=== PATIENT | female | born 1980 | race Caucasian/White ===

== ENCOUNTER → 2019-09-27 11:11 | Outpatient (CLI) | payer MEDICARE, MEDICAID, SELFPAY ==
[2019-09-27 10:23] VITALS: BMI 37.8
[2019-09-30 03:06] LABS: QNTFERON TB Mitogen Value > 10.00 IU/mL (.); QNTFERON TB Nil Value 0.02 IU/mL (.); QNTFERON TB1+ Ag Value 0.02 IU/mL (.); QNTFERON TB2+ Ag Value 0.02 IU/mL (.)
[2019-09-30 14:03] LABS: QNTIFERON TB Positive Criteria Negative (Negative)
== END ==
PROVIDERS: PCP Family Medicine; Referring Provider Psychiatry & Neurology Neurology; Visit Provider Psychiatry & Neurology Neurology
DX: G35 Multiple sclerosis (principal)
CPT/HCPCS: 36415; 86480

== ENCOUNTER → 2020-10-29 11:06 | Outpatient (CLI) | payer MEDICARE, MEDICAID, SELFPAY ==
[2020-07-08 10:39] VITALS: BMI 35.8
[2020-10-29 13:29] LABS: Absolute Lymphocyte Count 1.11 X10^3/uL (0.83-4.51); Absolute Neutrophil Count 4.8 X10^3/uL (2.0-7.7); Basophil# 0.04 X10^3/uL; Basophil% 0.6 % (0-1); Eosinophil# 0.07 X10^3/uL; Eosinophils% 1.1 % (0-5); Hematocrit 42.3 % (37-47); Hemoglobin 13.6 g/dL (12.0-15.0); Lymphocyte # 1.11 X10^3/ul (0.83-4.51); Lymphocyte % 16.9 % (19-41); Mean Corp Hgb Conc 32.2 g/dL (32-36); Mean Corpuscular Hgb 29.2 pg (27.0-32.0); Mean Corpuscular Volume 90.8 fL (81-99); Mean Platelet Vol. 14.2 fl (6.2-12.0); Monocyte# 0.52 X10^3/uL; Monocyte% 7.9 % (0-10); NRBC Flagged by Analyzer 0 % (0-5); Neutrophil # 4.75 X10^3/uL (2.7-7.7); Neutrophil % 72.6 % (47-70); Platelet Count 130 K/mm3 (150-450); RBC Distribution Width CV 12.9 % (11.6-14.6); RBC Distribution Width SD 42.6 fl (35.1-43.9); Red Blood Count 4.66 M/mm3 (4.2-5.4); White Blood Count 6.6 K/mm3 (4.4-11.0)
[2020-10-29 13:50] LABS: AST(SGOT) 14 U/L (15-37); Alanine Aminotransfer ALT/SGPT 29 U/L (13-56); Alkaline Phosphatase 65 U/L (45-117); Bilirubin, Direct 0.15 mg/dL (0.00-0.30); Globulin 3.1 g/dL (2.2-4.2); Protein, Total 7.1 g/dL (6.4-8.2)
== END ==
PROVIDERS: PCP Family Medicine; Visit Provider Nurse Practitioner Family
DX: G35 Multiple sclerosis (principal)
CPT/HCPCS: 36415; 80076; 85025

== ENCOUNTER → 2021-03-17 14:14 | Outpatient (CLI) | payer MEDICARE, MEDICAID, SELFPAY ==
[2021-03-17 15:13] LABS: Absolute Neutrophil Count 3.7 X10^3/uL (2.0-7.7); Basophil# 0.05 X10^3/uL; Basophil% 0.8 % (0-1); Eosinophil# 0.14 X10^3/uL; Eosinophils% 2.3 % (0-5); Hematocrit 39.6 % (37-47); Lymphocyte % 23.4 % (19-41); Mean Corp Hgb Conc 32.8 g/dL (32-36); Mean Corpuscular Hgb 29.1 pg (27.0-32.0); Mean Corpuscular Volume 88.6 fL (81-99); Mean Platelet Vol. 14.9 fl (6.2-12.0); Monocyte# 0.61 X10^3/uL; Monocyte% 10.2 % (0-10); NRBC Flagged by Analyzer 0 % (0-5); Neutrophil # 3.73 X10^3/uL (2.7-7.7); Neutrophil % 62.5 % (47-70); Platelet Count 105 K/mm3 (150-450); RBC Distribution Width CV 13.5 % (11.6-14.6); RBC Distribution Width SD 43.9 fl (35.1-43.9); Red Blood Count 4.47 M/mm3 (4.2-5.4)
[2021-03-17 15:34] LABS: ALB/GLOB Ratio 1.2 RATIO (0.9-2.4); AST(SGOT) 10 U/L (15-37); Alanine Aminotransfer ALT/SGPT 22 U/L (13-56); Albumin, Serum 3.7 g/dL (3.2-5.0); Alkaline Phosphatase 71 U/L (45-117); Anion Gap 3 (5-15); BUN 17 mg/dL (7-18); BUN/Creat Ratio 21.9 RATIO (10-20); Calcium,Total 8.7 mg/dL (8.5-10.1); Chloride 108 mmol/L (98-107); Creatinine, Serum 0.78 mg/dL (0.55-1.02); EST Glomerular Filtration Rate 86 mL/min (>60); Est Glom Filt Rate - Afr Amer 105 mL/min (>60); Globulin 3.1 g/dL (2.2-4.2); Glucose 99 mg/dL (74-106); Potassium 3.7 mmol/L (3.5-5.1); Protein, Total 6.8 g/dL (6.4-8.2); Sodium Level 139 mmol/L (136-145)
[2021-03-17 15:43] LABS: Vitamin D,25 Hydroxy 106.5 ng/mL
[2021-03-18 14:10] LABS: Vitamin B12 > 2000 pg/mL (211-911)
== END ==
PROVIDERS: PCP Family Medicine; Referring Provider Nurse Practitioner Family; Visit Provider Nurse Practitioner Family
DX: G35 Multiple sclerosis (principal); R53.83 Other fatigue; E55.9 Vitamin D deficiency, unspecified
CPT/HCPCS: 36415; 80053; 82306; 82607; 85025

== ENCOUNTER → 2021-06-02 10:48 | Outpatient (CLI) | payer MEDICARE, MEDICAID, SELFPAY ==
[2021-06-02 12:26] LABS: Absolute Lymphocyte Count 1.68 X10^3/uL (0.83-4.51); Absolute Neutrophil Count 5.5 X10^3/uL (2.0-7.7); Basophil# 0.06 X10^3/uL; Basophil% 0.7 % (0-1); Eosinophil# 0.13 X10^3/uL; Eosinophils% 1.6 % (0-5); Hematocrit 45.3 % (37-47); Hemoglobin 14.7 g/dL (12.0-15.0); Lymphocyte # 1.68 X10^3/ul (0.83-4.51); Lymphocyte % 20.4 % (19-41); Mean Corp Hgb Conc 32.5 g/dL (32-36); Mean Corpuscular Hgb 29.1 pg (27.0-32.0); Mean Corpuscular Volume 89.5 fL (81-99); Monocyte% 9.7 % (0-10); NRBC Flagged by Analyzer 0 % (0-5); Neutrophil # 5.49 X10^3/uL (2.7-7.7); Neutrophil % 66.7 % (47-70); Platelet Count 138 K/mm3 (150-450); RBC Distribution Width CV 13.2 % (11.6-14.6); RBC Distribution Width SD 43.3 fl (35.1-43.9); Red Blood Count 5.06 M/mm3 (4.2-5.4); White Blood Count 8.2 K/mm3 (4.4-11.0)
[2021-06-02 12:45] LABS: Vitamin D,25 Hydroxy 48.3 ng/mL
== END ==
PROVIDERS: PCP Family Medicine; Referring Provider Nurse Practitioner Family; Visit Provider Nurse Practitioner Family
DX: E55.9 Vitamin D deficiency, unspecified (principal); G35 Multiple sclerosis
CPT/HCPCS: 36415; 82306; 85025

== ENCOUNTER → 2022-04-19 | Outpatient (CLI) | payer MEDICARE, MEDICAID, SELFPAY ==
[2022-04-19 15:13] LABS: Absolute Lymphocyte Count 1.45 X10^3/uL (0.83-4.51); Absolute Neutrophil Count 4.8 X10^3/uL (2.0-7.7); Basophil# 0.05 X10^3/uL; Basophil% 0.7 % (0-1); Eosinophil# 0.11 X10^3/uL; Eosinophils% 1.6 % (0-5); Hematocrit 41.3 % (37-47); Hemoglobin 13.1 g/dL (12.0-15.0); Lymphocyte # 1.45 X10^3/ul (0.83-4.51); Lymphocyte % 20.5 % (19-41); Mean Corp Hgb Conc 31.7 g/dL (32-36); Mean Corpuscular Hgb 28.7 pg (27.0-32.0); Mean Corpuscular Volume 90.4 fL (81-99); Mean Platelet Vol. 14.3 fl (6.2-12.0); Monocyte# 0.62 X10^3/uL; Monocyte% 8.7 % (0-10); NRBC Flagged by Analyzer 0 % (0-5); Neutrophil # 4.79 X10^3/uL (2.7-7.7); Neutrophil % 67.5 % (47-70); Platelet Count 125 K/mm3 (150-450); RBC Distribution Width CV 13.5 % (11.6-14.6); RBC Distribution Width SD 44.5 fl (35.1-43.9); Red Blood Count 4.57 M/mm3 (4.2-5.4); White Blood Count 7.1 K/mm3 (4.4-11.0)
[2022-04-19 15:38] LABS: Vitamin B12 366 pg/mL (211-911)
[2022-04-19 16:06] LABS: ALB/GLOB Ratio 1.1 RATIO (0.9-2.4); AST(SGOT) 13 U/L (15-37); Alanine Aminotransfer ALT/SGPT 22 U/L (13-56); Albumin, Serum 3.5 g/dL (3.2-5.0); Alkaline Phosphatase 67 U/L (45-117); Anion Gap 8 (5-15); BUN 13 mg/dL (7-18); BUN/Creat Ratio 17.5 RATIO (10-20); Calcium,Total 8.8 mg/dL (8.5-10.1); Chloride 110 mmol/L (98-107); Creatinine, Serum 0.74 mg/dL (0.55-1.02); EST Glomerular Filtration Rate 90 mL/min (>60); Est Glom Filt Rate - Afr Amer 109 mL/min (>60); Globulin 3.1 g/dL (2.2-4.2); Glucose 97 mg/dL (74-106); Potassium 3.8 mmol/L (3.5-5.1); Protein, Total 6.6 g/dL (6.4-8.2); Sodium Level 143 mmol/L (136-145); Thyroid Stim Hormone (TSH) 1.35 uIU/mL (0.358-3.74)
[2022-04-27 10:37] LABS: Vitamin B1, Thiamine 129.1 nmol/L (66.5-200.0)
== END | disposition home or self-care (01) ==
PROVIDERS: PCP Family Medicine; Referring Provider Psychiatry & Neurology Neurology; Visit Provider Psychiatry & Neurology Neurology
DX: R53.83 Other fatigue (principal); G35 Multiple sclerosis; R26.81 Unsteadiness on feet
CPT/HCPCS: 36415; 80053; 82607; 82746; 84425; 84443; 85025

== ENCOUNTER → 2023-01-03 | Outpatient (CLI) | payer MEDICARE, MEDICAID, SELFPAY ==
[2023-01-03 14:36] LABS: Absolute Lymphocyte Count 1.12 X10^3/uL (0.83-4.51); Basophil# 0.06 X10^3/uL; Basophil% 0.5 % (0-1); Eosinophil# 0.13 X10^3/uL; Eosinophils% 1.2 % (0-5); Hematocrit 42.5 % (37-47); Hemoglobin 13.6 g/dL (12.0-15.0); Lymphocyte # 1.12 X10^3/ul (0.83-4.51); Mean Corpuscular Volume 90.6 fL (81-99); Monocyte# 0.78 X10^3/uL; NRBC Flagged by Analyzer 0 % (0-5); Neutrophil # 8.98 X10^3/uL (2.7-7.7); Neutrophil % 80.5 % (47-70); POSITIVE COUNT YES; Platelet Count 99 K/mm3 (150-450); RBC Distribution Width CV 12.9 % (11.6-14.6); RBC Distribution Width SD 42.2 fl (35.1-43.9); Red Blood Count 4.69 M/mm3 (4.2-5.4); White Blood Count 11.2 K/mm3 (4.4-11.0)
[2023-01-03 14:37] LABS: Differential Indicated SCAN CRITERIA MET
[2023-01-03 15:03] LABS: ALB/GLOB Ratio 1.1 RATIO (0.9-2.4); AST(SGOT) 13 U/L (15-37); Alanine Aminotransfer ALT/SGPT 31 U/L (13-56); Albumin, Serum 3.8 g/dL (3.2-5.0); Alkaline Phosphatase 72 U/L (45-117); Anion Gap 6 (5-15); BUN 18 mg/dL (7-18); BUN/Creat Ratio 20.2 RATIO (10-20); Calcium,Total 9.3 mg/dL (8.5-10.1); Chloride 108 mmol/L (98-107); Creatinine, Serum 0.89 mg/dL (0.55-1.02); EST Glomerular Filtration Rate 73 mL/min (>60); Est Glom Filt Rate - Afr Amer 88 mL/min (>60); Globulin 3.5 g/dL (2.2-4.2); Glucose 97 mg/dL (74-106); Potassium 4.1 mmol/L (3.5-5.1); Protein, Total 7.3 g/dL (6.4-8.2); Sodium Level 139 mmol/L (136-145)
[2023-01-03 15:06] LABS: Platelet Estimate MOD DEC (ADEQ)
== END | disposition home or self-care (01) ==
LOC: MTLAB 12:33
PROVIDERS: PCP Family Medicine; Referring Provider Psychiatry & Neurology Neurology; Visit Provider Psychiatry & Neurology Neurology
DX: G35 Multiple sclerosis (principal)
CPT/HCPCS: 36415; 80053; 85025

== ENCOUNTER → 2023-02-03 | Outpatient (CLI) | payer MEDICARE, MEDICAID, SELFPAY ==
[2023-02-03 17:21] LABS: Absolute Lymphocyte Count 1.62 X10^3/uL (0.83-4.51); Absolute Neutrophil Count 4.7 X10^3/uL (2.0-7.7); Basophil# 0.06 X10^3/uL; Basophil% 0.8 % (0-1); Eosinophil# 0.09 X10^3/uL; Eosinophils% 1.3 % (0-5); Hematocrit 40.5 % (37-47); Hemoglobin 12.9 g/dL (12.0-15.0); Immature Platelet Fraction 24.1 % (1.0-7.9); Lymphocyte # 1.62 X10^3/ul (0.83-4.51); Lymphocyte % 22.8 % (19-41); Mean Corp Hgb Conc 31.9 g/dL (32-36); Mean Corpuscular Hgb 28.5 pg (27.0-32.0); Mean Corpuscular Volume 89.6 fL (81-99); Mean Platelet Vol. 14.4 fl (6.2-12.0); Monocyte# 0.58 X10^3/uL; Monocyte% 8.2 % (0-10); NRBC Flagged by Analyzer 0 % (0-5); Neutrophil # 4.68 X10^3/uL (2.7-7.7); Neutrophil % 65.9 % (47-70); POSITIVE COUNT YES; Platelet Count 91 K/mm3 (150-450); RBC Distribution Width CV 12.9 % (11.6-14.6); RBC Distribution Width SD 42.3 fl (35.1-43.9); RET-HE 31.5 pg (30-35); Red Blood Count 4.52 M/mm3 (4.2-5.4); Reticulocyte Count 2.22 % (0.5-1.5); White Blood Count 7.1 K/mm3 (4.4-11.0)
[2023-02-03 17:25] LABS: Differential Indicated SCAN CRITERIA MET
[2023-02-03 17:27] LABS: Erythrocyte Sedimentation Rate 2 mm/hr (0-30); International Normalized Ratio 1.1; Prothrombin Time (Protime)PT. 13.8 SECONDS (11.7-14.9)
[2023-02-03 17:28] LABS: Partial Thromboplast Time 28.4 Seconds (24.1-36.2)
[2023-02-03 17:57] LABS: Platelet Estimate SLT DEC (ADEQ); Platelet Morphology LARGE
[2023-02-03 17:58] LABS: Anisocytosis RARE; Red Cell Morphology N CHROM NORMAL (NORM C&C)
[2023-02-03 18:28] LABS: Vitamin B12 428 pg/mL (211-911)
[2023-02-03 18:37] LABS: ALB/GLOB Ratio 1.2 RATIO (0.9-2.4); AST(SGOT) 21 U/L (15-37); Alanine Aminotransfer ALT/SGPT 38 U/L (13-56); Albumin, Serum 3.7 g/dL (3.2-5.0); Alkaline Phosphatase 55 U/L (45-117); Anion Gap 8 (5-15); BUN 16 mg/dL (7-18); BUN/Creat Ratio 18.6 RATIO (10-20); Calcium,Total 8.8 mg/dL (8.5-10.1); Chloride 110 mmol/L (98-107); Creatinine, Serum 0.86 mg/dL (0.55-1.02); EST Glomerular Filtration Rate 76 mL/min (>60); Est Glom Filt Rate - Afr Amer 92 mL/min (>60); Ferritin 43 ng/mL (8-252); Globulin 3.1 g/dL (2.2-4.2); Glucose 101 mg/dL (74-106); Iron Binding Capacity,Total 321 ug/dL (250-450); LDH 299 U/L (84-246); Potassium 3.6 mmol/L (3.5-5.1); Protein, Total 6.8 g/dL (6.4-8.2); Sodium Level 144 mmol/L (136-145)
[2023-02-03 19:10] LABS: CRP < 2.90 mg/L (0.0-3.0)
== END | disposition home or self-care (01) ==
LOC: LAB 16:57
PROVIDERS: PCP Family Medicine; Referring Provider Internal Medicine Medical Oncology; Visit Provider Internal Medicine Medical Oncology
DX: R53.83 Other fatigue (principal); D69.3 Immune thrombocytopenic purpura; M25.551 Pain in right hip
CPT/HCPCS: 80053; 82607; 82728; 82746; 83550; 83615; 85025; 85045; 85610; 85652; 85730; 86140

== ENCOUNTER → 2023-09-15 | Outpatient (CLI) | payer MEDICARE, MEDICAID, SELFPAY ==
[2023-09-15 17:43] LABS: Absolute Lymphocyte Count 1.47 X10^3/uL (0.83-4.51); Absolute Neutrophil Count 3.8 X10^3/uL (2.0-7.7); Basophil# 0.04 X10^3/uL; Basophil% 0.7 % (0-1); Eosinophil# 0.16 X10^3/uL; Eosinophils% 2.6 % (0-5); Hematocrit 40.1 % (37-47); Hemoglobin 12.8 g/dL (12.0-15.0); Lymphocyte # 1.47 X10^3/ul (0.83-4.51); Mean Corp Hgb Conc 31.9 g/dL (32-36); Mean Corpuscular Hgb 27.9 pg (27.0-32.0); Mean Corpuscular Volume 87.6 fL (81-99); Monocyte# 0.61 X10^3/uL; NRBC Flagged by Analyzer 0 % (0-5); Neutrophil # 3.82 X10^3/uL (2.7-7.7); Neutrophil % 62.2 % (47-70); Platelet Count 113 K/mm3 (150-450); RBC Distribution Width CV 12.7 % (11.6-14.6); RBC Distribution Width SD 40.5 fl (35.1-43.9); Red Blood Count 4.58 M/mm3 (4.2-5.4); White Blood Count 6.1 K/mm3 (4.4-11.0)
[2023-09-15 18:04] LABS: ALB/GLOB Ratio 1.2 RATIO (0.9-2.4); AST(SGOT) 14 U/L (15-37); Alanine Aminotransfer ALT/SGPT 29 U/L (13-56); Albumin, Serum 3.8 g/dL (3.2-5.0); Alkaline Phosphatase 75 U/L (45-117); Anion Gap 4 (5-15); BUN 16 mg/dL (7-18); BUN/Creat Ratio 20.8 RATIO (10-20); Chloride 108 mmol/L (98-107); Creatinine, Serum 0.77 mg/dL (0.55-1.02); EST Glomerular Filtration Rate 86 mL/min (>60); Est Glom Filt Rate - Afr Amer 104 mL/min (>60); Globulin 3.2 g/dL (2.2-4.2); Glucose 95 mg/dL (74-106); Potassium 3.6 mmol/L (3.5-5.1); Sodium Level 140 mmol/L (136-145)
--- OUTSIDE RECORDS SUMMARY | 2023-09-15 21:44 | XMS RPT_ITS | CCD ---
Author Name Unknown Address [address] [place] [address] Organization [facility] Care Team Providers Care Advertising Project Manager Name Role Phone Unavailable Unavailable Unavailable SERENA SCHUSTER Unavailable UnavailALCON GreenMY DANIEL Unavailable UnavailCHELSEA Ortega Unavailable Unavailable Landen, Serena L Unavailable Unavailable Landen, Serena L Unavailable Unavailable ExtenFrench E Unavailable Unavailable Exten French Kareem Unavailable Unavailable Maricarmen Marte Unavailable Unavailable Chelsea Garcia Unavailable Unavailable Alka Ding Unavailable Unavailab Chelsea Kay Unavailable Bertrand Tamez Unavailable Unavailable Chelsea Garcia Unavailable Unavailable Unavailable Unknown, Referring Provider Unavailable Unav ailable Pending Provider Unavailable Unavailable Alka Ding Unavailable Unavailable Unavailable ALKA DING Referring Unavai lable LONGDAQUAN, ALKA CASANOVA Primary Care Unavai lable LONGDAQUAN, ALKA CASANOVA Attending Unavai lable TOÑA, ALKA CASANOVA Referring Unavai lable LONGBRISEYDAORF, ALKA CASANOVA Primary Care Unavai lable LONGDAQUAN, ALKA CASANOVA Attending Unavai lable LONGDAQUAN, ALKA CASANOVA Referring Unavai lable Cheuvront, Ms. Caterina Redding Primary Care Unav ailable ALKA DING Attending Melissavatrevor lable TOÑA, ALKA CASANOVA Primary Care Unavai lable TOÑA, ALKA CASANOVA Attending Unavai lable LONGSDORF, ALKA CASANOVA Referring Davidtrevor marcesharron GARCIA, CHELSEA BRUMFIELD Primary Care Unavailable GIBSON, JASON Attending Unavailable LONGSDORF, ALKA Reese Attending Unavailab le LONGSDORF, ALKA Reese Primary Care Unavailab le Longsdorf, Dr. Alka Casanova Primary Care Un available Baddour, Dr. Sang Azul Attending Unav ailable Baddour, Dr. Sang Azul Attending Unav ailable Longsdorf, Dr. Alka Casanova Primary Care Un available Baddour, Dr. Sang Azul Attending Unav ailable Longsdorf, Dr. Alka Casanova Primary Care Un available Baddour, Dr. Sang Azul Attending Unav ailable Longsdorf, Dr. Alka Casanova Primary Care Un available Baddour, Dr. Sang Azul Attending Unav ailable Longsdorf, Dr. Alka Casanova Primary Care Un available Longsdorf, Dr. Alka Casanova Primary Care Un available Baddour, Dr. Sang Azul Attending Unav ailable Baddour, Dr. Sang Azul Attending Unav ailable Longsdorf, Dr. Alka Casanova Primary Care Un available Baddour, Dr. Sang Azul Referring Unav ailable Longsdorf, Dr. Alka Casanova Primary Care Un available Baddour, Dr. Sang Azul Attending Unav ailable Baddour, Dr. Sang Azul Attending Unav ailable Baddour, Dr. Sang Azul Admitting Unav ailable Longsdorf, Dr. Alka Casanova Primary Care Un available Baddour, Dr. Sang Azul Attending Unav ailable Baddour, Dr. Sang Azul Admitting Unav ailable Longsdorf, Dr. Alka Casanova Primary Care Un available Baddour, Dr. Sang Azul Attending Unav ailable Baddour, Dr. Sang Azul Admitting Unav ailable Longsdorf, Dr. Alka Casanova Primary Care Un available Allergies Allergy Classification Reported Allergen(s) Allergy Type Date of Onset Reaction(s) Facility Opioid Agonists (2 sources) Morphine Drug Allergy Rash [facility] (20 sources) codeine; Translations: [CODEINE] Propensity to adverse reactions to drug 3 Rash, Hives [facility] Work Phone: (20 sources) morphine; Translations: [MORPHINE] Propensity to adverse reactions to drug 3 Rash [facility] Work Phone: Medications Current Medications Medication Drug Class(es) Dates Sig (Normalized) Sig (Original) acyclovir 400 mg oral tablet (1 source) Herpesvirus Nucleoside Analog DNA Polymerase Inhibitor, Herpes Simplex Virus Nucleoside Analog DNA Polymerase Inhibitor, Herpes Zoster Virus Nucleoside Analog DNA Polymerase Inhibitor Start: 11-24-2020 take 1 tablet by mouth twice daily acyclovir 400 mg oral tablet ; 1 tab(s) orally 2 times a day Quantity: 0 Refills: 0 Ordered: 15-Feb-2021 Stephanie May Start: 24-Nov-2020 Generic Substitution Allowed cyclobenzaprine hydrochloride 10 mg oral tablet (1 source) Muscle Relaxant Start: 10-01-2020 take 1 tablet by mouth three times daily cyclobenzaprine 10 mg oral tablet ; 1 tab(s) orally 3 times a day Quantity: 15 Refills: 0 Ordered: 01-Oct-2020 Luis Enrique Parekh Start: 01-Oct-2020 Generic Substitution Allowed Comments: May cause drowsiness. Alcohol may intensify this effect. Use care when operating dangerous machinery.Obtain medical advice before taking any non-prescription drugs as some may affect the action of this medication. Completed/Discontinued Medications Medication Drug Class(es) Dates Sig (Normalized) Sig (Original) baclofen 10 mg oral tablet (10 sources) gamma-Aminobutyr ic Acid-ergic Agonist Start: 06-02-2021 take 1 tablet by mouth three times daily as needed for pain Baclofen 10 MG Oral Tablet TAKE 1 TABLET BY MOUTH 3 TIMES DAILY NEEDED FOR BACK PAIN/MUSCLE SPASTICITY Quantity: 90 Refills: 0 Ordered: 02-Jun-2021 DO Start : 02-Jun-2021 Active cholecalciferol 0.025 mg oral capsule (20 sources) Vitamin D Vitamin D (Cholecalciferol ) 25 MCG (1000 UT) Oral Capsule Quantity: 0 Refills: 0 Ordered: 14-May-2019 DO Active Problems Active Problems Problem Classification Problem Date Documented Date Episodic/Chronic Coagulation and hemorrhagic disorders (11 sources) Immune thrombocytopenic purpura; Translations: [Thrombocytopenic disorder] Onset: 03-04-2017 03-04-2017 Chronic Fluid and electrolyte disorders (2 sources) Dehydration; Translations: [Dehydration] Onset: 07-16-2022 Episodic Inflammation; infection of eye (except that caused by tuberculosis or sexually transmitteddisease) (13 sources) Acute conjunctivitis; Translations: [Acute conjunctivitis, unspecified] Episodic Mood disorders (20 sources) Depressive disorder; Translations: [Depressive disorder, not elsewhere classified] Onset: 08-06-2022 Chronic Past or Other Problems Problem Classification Problem Date Documented Da te Episodic/Chronic Deficiency and other anemia (3 sources) Iron deficiency anemia; Translations: [Iron deficiency anemia, unspecified] Onset: 03-04-2017 03-04-2017 Episodic Other nervous system disorders (1 source) Dysarthria and anarthria; Translations: [Dysarthria and anarthria] Onset: 07-07-2022 Episodic Other non-traumatic joint disorders (4 sources) Pain in right hip; Translations: [Pain in right hip] Onset: 05-18-2022 Episodic Results Test Name Value Interpretation Reference Range Facil ity Vital Signs Date Time Vital Sign Value Performing Clinician Facility 04-20-2022 11:58-0400 Body height 165.1 cm Alka Reese Toña Work Phone: [facility] Work Phone: 04-20-2022 11:58-0400 Body mass index (BMI) [Ratio] 37.46 kg/m2 Alka Mary Ann Ding Work Phone: [facility] Work Phone: 04-20-2022 11:58-0400 Body surface area Derived from formula 2.08 m2 Alkalawrence Ding Work Phone: [facility] Work Phone: 04-20-2022 11:58-0400 Body weight 102.12 kg Alka Reese Toña Work Phone: [facility] Work Phone: 04-20-2022 11:58-0400 Diastolic blood pressure 78 mm[Hg] [facility]ing [facility] Work Phone: 04-20-2022 11:58-0400 Heart rate 98 /min Alka Ding Work [facility] Work Phone: 04-20-2022 11:58-0400 SaO2% (BldA) [Mass fraction] 98 % Alka Ding Work [facility] Work Phone: 04-20-2022 11:58-0400 Systolic blood pressure 118 mm[Hg] Alka Ding Work [facility] Work Phone: 03-23-2022 11:05-0400 Body height 165.1 cm Alka Ding Work Phone: [facility] Work Phone: 03-23-2022 11:05-0400 Body mass index (BMI) [Ratio] 36.13 kg/m2 Alka Ding Work Phone: [facility] Work Phone: 03-23-2022 11:05-0400 Body surface area Derived from formula 2.05 m2 Alka Ding Work Phone: [facility] Work Phone: 03-23-2022 11:05-0400 Body weight 98.49 kg Alka Ding Work Phone: [facility] Work Phone: 03-23-2022 11:05-0400 Diastolic blood pressure 78 mm[Hg] Alka Ding Work Phone: [facility] Work Phone: 03-23-2022 11:05-0400 Heart rate 86 /min Alka Ding Work Phone: [facility] Work Phone: 03-23-2022 11:05-0400 SaO2% (BldA) [Mass fraction] 97 % Alka Ding Work Phone: [facility] Work Phone: 03-23-2022 11:05-0400 Systolic blood pressure 130 mm[Hg] Alka Ding Work Phone: [facility] Work Phone: 09-22-2021 16:20-0500 Diastolic blood pressure 88 mm[Hg] Alka Ding Work Phone: [facility] Work Phone: 09-22-2021 16:20-0500 Systolic blood pressure 128 mm[Hg] Alka Ding Work Phone: [facility] Work Phone: 09-22-2021 15:46-0500 Body height 165.1 cm Alka Ding Work Phone: [facility] Work Phone: 09-22-2021 15:46-0500 Body mass index (BMI) [Ratio] 37.61 kg/m2 Alka Ding Work Phone: [facility] Work Phone: 09-22-2021 15:46-0500 Body surface area Derived from formula 2.08 m2 Alka Ding [facility] Work Phone: 09-22-2021 15:46-0500 Body weight 102.51 kg Alka Ding Work Phone: [facility] Work Phone: 09-22-2021 15:46-0500 Diastolic blood pressure 90 mm[Hg] Alka Ding Work Phone: [facility] Work Phone: 09-22-2021 15:46-0500 Heart rate 110 /min Alka Ding Work Phone: [facility] Work Phone: 09-22-2021 15:46-0500 SaO2% (BldA) [Mass fraction] 97 % Alka Ding Work Phone: [facility] Work Phone: 09-22-2021 15:46-0500 Systolic blood pressure 132 mm[Hg] Alka Ding Work Phone: [facility] Work Phone: 02-15-2021 13:31-0400 Diastolic blood pressure 92 mm[Hg] Chelsea Garcia Other Phone: [facility] 02-15-2021 13:31-0400 Heart rate 76 /min Chelsea Garcia Other Phone: [facility] 02-15-2021 13:31-0400 Respiratory rate 16 /min Chelsea Garcia Other Phone: [facility] 02-15-2021 13:31-0400 SaO2% (BldA) [Mass fraction] 99 % Chelsea Garcia Other Phone: [facility] 02-15-2021 13:31-0400 Systolic blood pressure 146 mm[Hg] Chelsea Garcia Other Phone: [facility] 02-15-2021 11:120400 Body height 162.5 cm Chelsea Garcia Other Phone: [facility] 02-15-2021 11:12-0400 Body temperature 97.88 [degF] Chelsea Garcia Other Phone: [facility] 02-15-2021 11:12-0400 Body weight 90.9 kg Chelsealorie Garcia Other Phone: [facility] 05-14-2019 15:31-0400 BMI (Body Mass Index) 35.85 kg/m2 Maricarmen [place] [facility] Work Phone: 05-14-2019 15:31-0400 Body weight 97.72 kg Maricarmen [place] [facility] Work Phone: 05-14-2019 15:31-0400 BP Diastolic 92 mm[Hg] Maricarmenyamini Borgespster [facility] Work Phone: Encounters Encounter Date Encounter Type Care Provider Facility Start: 01-20-[address] Sang Abarca Facility:[id number] Start: 10-08-2022 End: 10-08-[facility] Start: 07-16-2022 End: 07-16-2022 Emergency department patient visit CHELSEA GARCIA [facility] Start: 07-07-2022 Patient encounter procedure Alka Ding Work Phone[facility] Work Phone: Start: 07-07-[address] Sang Abarca Facility:[id number] Start: 06-29-2022 Patient encounter procedure Alka Ding Work [facility] Work Phone: Start: 06-29-[address] Sang Abarca Facility:[id number] Start: 06-18-2022 Patient encounter procedure Alka Ding Work Phone: [facility] Work Phone: Start: 06-18-[address] [id number] Start: 06-09-[address] [id number] Start: 06-08-[address] [id number] Start: 06-07-[address] [id number] Start: 06-07-2022 Patient encounter procedure Alka Ding Work Phone: [facility] Work Phone: Start: 05-25-2022 Patient encounter procedure Alka Ding Work Phone: [facility] Work Phone: Start: 05-25-[address] Alka Ding Facility:[id number] Start: 05-19-2022 Patient encounter procedure Alka Ding Work Phone: [facility] Work Phone: Start: 05-18-[address] Alka Ding Facility:[id number] Start: 04-20-2022 ambulatory ALKA DING Facility:[id number] Start: 03-24-2022 Chart Update Alka lagos Work Phone: [facility] Work Phone: Start: 03-23-2022 Office outpatient vi sit 15 minutes Alka Ding Work Phone: [facility] Work Phone: Start: 03-23-2022 ambulatory ALKA DING Facility:[id number] Start: 01-27-[address] Alka Ding Facility:[id number] Start: 09-22-2021 Office outpatient vi sit 15 minutes Alka Ding Work Phone: [facility] Work Phone: Start: 09-22-2021 Patient encounter procedure Alka Ding Work Phone: [facility] Work Phone: Start: 09-22-2021 ambulatory ALKA DING Facility:[id number] Start: [facility]-08-20[id number] Start: 08-31-2021 Patient encounter procedure Tali Rodgers PT Work Phone: [facility] Work Phone: Start: 08-17-2021 Patient encounter procedure Referring Provider Unknown [facility] Work Phone: Start: 08-10-2021 Patient encounter procedure Referring Provider Unknown [facility] Work Phone: Start: 07-30-2021 Patient encounter procedure Referring Provider Unknown [facility] Work Phone: Start: 06-18-2021 Patient encounter procedure Referring Provider Unknown [facility] Work Phone: Start: 06-08-2021 Patient encounter procedure Referring Provider Unknown [facility] Work Phone: Start: 06-08-2021 Patient encounter procedure Referring Provider Unknown [facility] Work Phone: Start: 06-03-2021 Patient encounter procedure Referring Provider Unknown [facility] Work Phone: Start: 05-04-2021 Patient encounter procedure Referring Provider Unknown [facility] Work Phone: Start: 04-30-2021 Patient encounter procedure Chelsea Garcia Work Phone: [facility] Work Phone: Start: 04-20-2021 Patient encounter procedure Chelsea Garcia Work Phone: [facility] Work Phone: Start: 02-15-2021 End: 02-15-2021 Emergency department patient visit Bertrand Tamez [facility] Emergency 03 Start: 03-04-2017 End: 03-04-2017 Ambulatory SERENA SCHUSTER [facility] Ambulatory Start: 03-04-2017 Office/outpatient vi sit, est, level 3 Serena Mackfield Work Phone: [facility] Start: 02-28-2017 [facility] Start: 02-22-2017 Ambulatory French Noriega Facility :[facility] Start: 02-22-2017 End: 02-22-2017 Ambulatory French Noriega Work Phone: [facility] Start: 02-07-2017 Ambulatory [facility] Fac[facility] ty:[facility] Encounter for gynecological examination (general) (routine) without abnormal findings Chelsea Garcia Work Phone: [facility] Work Phone: Procedures Date Procedure Procedure Detail Performing Clinician section Chelsea triplett Work Phone: Cholecystectomy Chelsea layne Work Phone: Ligation of fallopian tube J salvatore Garcia Work Phone: Plan of Treatment Date Care Activity Detail Author Start: 09-21-2022 EPV, Provider: Alka Ding, Status: Pen, Time: 10:40 AM EPV, Provider: Alka Ding, Status: Pen, Time: 10:40 AM [facility] Work Phone: Start: 07-16-2022 PTEVALADUL, Provider: Heidy Subramanian, Status: Pen, Time: 2:30 PM PTEVALADUL, Provider: Heidy Subramanian, Status: Pen, Time: 2:30 PM [facility] Work Phone: Start: 07-16-2022 STFUADULT4, Provider: Cheryl Cobian, Status: Pen, Time: 12:00 PM STFUADULT4, Provider: Cheryl Cobian, Status: Pen, Time: 12:00 PM [facility] Work Phone: Start: 07-16-2022 STFUADULT4, Provider: Cheryl Cobian, Status: Pen, Time: 11:15 AM STFUADULT4, Provider: Cheryl Cobian, Status: Pen, Time: 11:15 AM [facility] Work Phone: Start: 07-07-2022 STFUADULT3, Provider: Cheryl Cobian, Status: Pen, Time: 11:00 AM STFUADULT3, Provider: Cheryl Cobain, Status: Pen, Time: 11:00 AM [facility] Work Phone: Start: 07-02-2022 STFUADULT4, Provider: Cheryl Cobian, Status: Pen, Time: 12:00 PM STFUADULT4, Provider: Cheryl Cobian, Status: Pen, Time: 12:00 PM [facility] Work Phone: Start: 07-02-2022 STFUADULT4, Provider: Cheryl Cobian, Status: Pen, Time: 11:15 AM STFUADULT4, Provider: Cheryl Cobian, Status: Pen, Time: 11:15 AM [facility] Work Phone: Start: 06-25-2022 STFUADULT4, Provider: Cheryl Cobian, Status: Pen, Time: 12:00 PM STFUADULT4, Provider: Cheryl Cobian, Status: Pen, Time: 12:00 PM [facility] Work Phone: Start: 06-25-2022 STFUADULT4, Provider: Cheryl Cobian, Status: Pen, Time: 11:15 AM STFUADULT4, Provider: Cheryl Cobian, Status: Pen, Time: 11:15 AM [facility] Work Phone: Start: 06-18-2022 STFUADULT4, Provider: Cheryl Cobian, Status: Pen, Time: 12:00 PM STFUADULT4, Provider: Cheryl Cobian, Status: Pen, Time: 12:00 PM [facility] Work Phone: Start: 06-18-2022 STFUADULT4, Provider: Cheryl Cobian, Status: Pen, Time: 11:15 AM STFUADULT4, Provider: Cheryl Cobian, Status: Pen, Time: 11:15 AM [facility] Work Phone: Start: 06-07-2022 PTEVALADUL, Provider: Heidy Subramanian, Status: Pen, Time: 12:00 PM PTEVALADUL, Provider: Heidy Subramanian, Status: Pen, Time: 12:00 PM [facility] Work Phone: Start: 06-04-2022 STFUADULT4, Provider: Cheryl Cobian, Status: Pen, Time: 11:15 AM STFUADULT4, Provider: Cheryl Cobian, Status: Pen, Time: 11:15 AM [facility] Work Phone: Start: 05-25-2022 STEVALADLT, Provider: Cheryl Cobian, Status: Pen, Time: 1:00 PM STEVALADLT, Provider: Cheryl Cobian, Status: Pen, Time: 1:00 PM [facility] Work Phone: Start: 03-23-2022 EPV, Provider: Alka Ding, Status: Pen, Time: 11:20 AM EPV, Provider: Alka Ding, Status: Pen, Time: 11:20 AM [facility] Work Phone: Start: 09-08-2021 NPV, Provider: Alka Ding, Status: Pen, Time: 3:40 PM NPV, Provider: Alka Ding, Status: Pen, Time: 3:40 PM [facility] Work Phone: Start: 08-24-2021 PTRECHADUL, Provider: Tali Rodgers, Status: Pen, Time: 12:00 PM PTRECHADUL, Provider: Tali Rodgers, Status: Pen, Time: 12:00 PM [facility] Work Phone: Start: 08-17-2021 PTRECHECKA, Provider: Tali Rodgers, Status: Pen, Time: 11:15 AM PTRECHECKA, Provider: Tali Rodgers, Status: Pen, Time: 11:15 AM [facility] Work Phone: Start: 08-10-2021 PTFUADULT4, Provider: Sheela Smyth, Status: Pen, Time: 10:45 AM PTFUADULT4, Provider: Sheela Smyth, Status: Pen, Time: 10:45 AM [facility] Work Phone: Start: 08-05-2021 PTFUADULT4, Provider: Lukas Greenberg, Status: Pen, Time: 10:00 AM PTFUADULT4, Provider: Lukas Greenberg, Status: Pen, Time: 10:00 AM [facility] Work Phone: Start: 06-18-2021 PTFUADULT4, Provider: Tali Rodgers, Status: Pen, Time: 9:30 AM PTFUADULT4, Provider: Tali Rodgers, Status: Pen, Time: 9:30 AM [facility] Work Phone: Start: 06-08-2021 PTFUADULT4, Provider: Gracia Bass, Status: Pen, Time: 11:30 AM PTFUADULT4, Provider: Gracia Bass, Status: Pen, Time: 11:30 AM [facility] Work Phone: Start: 05-11-2021 PTFUADULT4, Provider: Tali Rodgers, Status: Pen, Time: 11:00 AM PTFUADULT4, Provider: Tali Rodgers, Status: Pen, Time: 11:00 AM [facility] Work Phone: Start: 05-07-2021 PTFUADULT4, Provider: Fely Gomez, Status: Pen, Time: 10:00 AM PTFUADULT4, Provider: Fely Gomez, Status: Pen, Time: 10:00 AM [facility] Work Phone: Start: 05-04-2021 PTFUADULT4, Provider: Gracia Bass, Status: Pen, Time: 11:30 AM PTFUADULT4, Provider: Gracia Bass, Status: Pen, Time: 11:30 AM [facility] Work Phone: Start: 09-04-2017 End: 03-04-2018 CBC and Differential CBC and Differential Routine Chronic ITP (idiopathic thrombocytopenia) (HCC) Expected: 09/04/2017, Expires: 03/04/2018 [employer] Work Phone: Start: 09-04-2017 End: 03-04-2018 Ferritin Ferritin Routine Iron deficiency anemia, unspecified iron deficiency anemia type Expected: 09/04/2017, Expires: 03/04/2018 [employer] Phone: Start: 09-04-2017 End: 03-04-2018 Iron Iron Routine Iron deficiency anemia, unspecified iron deficiency anemia type Expected: 09/04/2017, Expires: 03/04/2018 [employer] Phone: Start: 09-04-2017 End: 03-04-2018 Transferrin Transferrin Routine Iron deficiency anemia, unspecified iron deficiency anemia type Expected: 09/04/2017, Expires: 03/04/2018 [facility] Work Phone: Start: 09-02-2017 Ambulatory 09/02/2017 Office Visit Oncology Serena Schuster, STUDENT DEVELOPMENT SPECIALIST [address] [place] [address] [phone] [facility] Start: 03-18-2017 SEQUENTIAL INFLUENZA VACCINE (#1) SEQUENTIAL INFLUENZA VACCINE (#1) [facility] Work Phone: Start: 02-28-2017 Ambulatory 02/28/2017 Office Visit Oncology Serena Schuster, STUDENT DEVELOPMENT SPECIALIST [address] [place] [address] [phone] [facility] Start: 1978 Cytopathology procedure, preparation of smear, genital source PAP SMEAR [facility] Work Phone: Start: 1978 TETANUS EVERY 10 YR TETANUS EVERY 10 YR [facility] Work Phone: Immunizations Immunization Date Immunization Notes Care Provider Fa prasad 05-22-2009 novel [id number], preservative-free, injectable Alka Ding Work Phone: [facility] Work Phone: Payers Date Payer Category Payer Unknown [id number] 2012 Medicare [id number] 1980 Unknown [id number] 2.. [id number] 1978 Unknown [id number] 1978 Unknown [id number] . [id number] 1978 Unknown [id number] . [id number] 1980 Unknown [id number] 2.16. [id number] 1980 Unknown [id number] 2.16.84 0.1.298937.3.579.2.1244 1978 Unknown [id number] 2.16.8 40.1.624614.3.579.2.9 1978 Unknown [id number] 2.16.8 40.1.352292.3.579.2.1068 1978 Unknown [id number] 2.16.8 40.1.823630.3.579.2.1068 1978 Unknown [id number] 2.16.8 40.1.991996.3.579.2.1068 1978 Unknown [id number] 2.16.8 40.1.652678.3.579.2.1068 1978 Unknown [id number] 2.16.8 40.1.684709.3.579.2.1068 1978 Unknown [id number] 2.16.8 40.1.807879.3.579.2.1068 1978 Unknown [id number] 2.16.8 40.1.724099.3.579.2.1068 1978 Unknown [id number] 2.16.8 40.1.255307.3.579.2.1068 1978 Unknown [id number] 2.16.8 40.1.193124.3.579.2.1068 1978 Unknown [id number] 2.16.8 40.1.056319.3.579.2.1069 Medicare [id number] 2. .[id number] Medicaid [id number] 2. [id number] Unknown Social History Date Type Detail Facility Start: 03-04-2017 Tobacco smoking status SDIS Light tobacco smoker [facility] Work Phone: Sex Assigned At Not on file [facility] Work Phone: Start: 02-20-2017 Tobacco smoking status NHIS Former smoker [facility] Work Phone: Tobacco smoking consumption unknown [facility] Occasional alcohol use Occasional alcohol use [facility] Work Phone: NEGATED: Highlighted row - - [facility] Work Phone: Functional Status Date Assessment Result Facility NEGATED: Highlighted row Functional performance Functional status health issues are not documented Disease [facility] Work Phone: Mental Status Date Assessment Result Facility NEGATED: Highlighted row Cognitive function [Interpretation] Cognitive status health issues are not documented Disease [facility] Work Phone: Clinical Notes 05-01-2021 to 06-07-2022 Note Date & Type Note Facility 06-07-2022 Note Message PRESTON TORRES no showed today . Patient NS/NC initial evaluation. Signatures Electronically signed by : Heidy Subramanian, PT; Jun 07 2022 12:24PM EST (Author) First Opinion 05-19-2022 Note Message PRESTON TORRES no showed today for initial evaluation. Signatures Electronically signed by : Cheryl Cobian CCC-SPEECH WRITER; May 19 2022 11:47AM EST (Author) First Opinion 08-31-2021 Note Therapy Diagnosis Assessed Abnormal gait (781.2) (R26.9) Plan Goals: Goals set and discussed today. Pt will demonstrate independence and compliance with HEP and self management, by week 2, goal met Activity Limitation: TUG 15 or better for decreased fall risk with LRAD, by week 4, goal partially met Balance: Tinetti gait 10/12 or better for decreased fall risk, by week 4, goal partially met Strength: LE strength 4/5 throughout or better for increased ease stair climbing to enter trailer from deck, by week 4, goal partially met Frequency and duration: No further visits planned. Discharge patient:. Assessment Pt has attended 10 visits of skilled PT for abnormal gait consisting of evaluation, ther ex, gait training, and neuro re-ed. Subjectively, since initiation of skilled PT, pt reports that she continues to have good days and bad days. Objectively, pt is still at continued risk for falls as evidenced by TUG score; however, no significant improvement in TUG score with PT intervention. Pt has follow-up scheduled with MD and has knowledge/skills to cont progressing LE strength independently via a progressive HEP, which has been provided. Therefore, skilled PT will be discharged. Adult Risk Screening There are no spiritual/cultural practices/values/needs that are important to know Initial Fall Risk Screening: PRESTON has fallen in the last 6 months. She has fallen due to during relapse. Her fall resulted in the following injury: big bruise on legs. PRESTON has a fear of falling. She needs assistance with . Needs assistance walking in her home. She needs assistance in an unfamiliar setting. The patient is using an assistive device. Care Plan: High Risk: Low and Moderate risk interventions plus: ensure patient is escorted at all times, do not leave unattended, inform provider of high risk status, discharge by wheelchair or escort assistance, room location, sitter, pre and post sedation/procedure standards, supervised toileting. Please identify location of pain: low back. Insurance Insurance reviewed Visit number: 10 Approved number of visits: 5 Authorization date range: 06/23-08/21 Authorization required after evaluation supervising PT JASSI Carlson Dual Adv Medicaid Onset Date: 2020 Subjective Patient reports:. Some stiffness in middle of low back today, unsure why, does not rate on numerical scale. No falls since last visit. Scheduling appointment with PCP and planning on asking for script for FWW. Feels like overall since starting PT, not many changes - some days are still better than others. Home program performing as directed: Yes. Precautions: Fall Risk: high use gait belt to/from lobby if pt amb with SPC. Objective Ortho TUG 31 R LE MMT: hip flex 4/5, hip abd 4/5, hip add 4/5, knee flex 4+/5, knee ext 5/5, ankle DF 4/5 L LE MMT: hip flex 4-/5, hip abd 4-/5, hip add 4-/5, knee flex 4/5, knee ext 4/5, ankle DF 3+/5. Treatment Time in clinic started at 10:20 am Time in clinic ended at 10:50 am Total time in clinic is 30 minutes. Therapeutic exercise (90944): timed minutes 10, units 1 . Sci fit stepper lvl 2 5 mins UE/LE heel raises in // bars 2 x 12. Neuromuscular Re-education (40131): timed minutes 20, units 1 . NBOS EO 3 x 30 variable UE assist and CGA mod tandem 3 x 30 E variable UE assist and CGA NBOS EC 3 x 30 variable UE assist and CGA. taps to step in // bars with 1 UE support x 20 side steps in // bars with UE support 10ft x 3 E direction Forward/retro tandem amb 10 ft x3 Marching/ backward amb 10 ft x3 . 'Scores and Scales' Signatures Electronically signed by : Tali Rodgers, PT; Aug 31 2021 12:15PM EST (Author) First Opinion 05-01-2021 History of Present illness Narrative Pt. states she had a fall on Tuesday -see subjective. Pt. states she is not too sore overall and ambulation is about the same as before. Pt. very slow with walking back to the gym, using a straight cane. Pt. is holding on the wall or handrail during gait. Pt.'s left knee delilah during gait often. Pt. able to completed seated exercises without increased sx.'s; verbal/tactile cues required. Pt. had difficulty with left knee during standing exercises. which patient held onto the table with both hands for support.Response to treatment: no change in pain.Patient was able to complete today's treatment with much difficulty. [facility] Work Phone: History of Present illness Narrative Pt presents with signs/symptoms consistent with dx of MS, impaired bal/gait: decreased LE strength, impaired bal, impaired gait. Would benefit from skilled PT to increase LE strength, normalize gait, improve bal for decreased fall risk and return to PLOF: able to amb safely in community with SPC. Barriers to pt progress in PT include chronicity of symptoms; however, rehab potential is good because pt has been compliant with previously issued HEP and is motivated to participate. At today's eval, adjusted SPC height, encouraged use of FWW in community for safety with gait, instructed in seated LE strengthening HEP with instruction to complete more reps on R vs L. Pt verbalized understanding, no increased symptoms reported post session and this PT amb with pt out to car, where son was waiting.Clinical Presentation: Stable and/or uncomplicated characteristics.Level of Complexity: lowProblem List: activity limitations, ADLs/IADLs/self care skills, balance, decreased functional level, decreased knowledge of HEP, fall risk, flexibility, gait/locomotion, participation restrictions, posture, strength and transfers. [facility] Work [facility]: History of Present illness Narrative Gait belt donned throughout Tx. Weakness noted with hip strengthening as tolerated. Episodes of L knee hyper extension with Ambulation causing LOB requiring assistance from CHILD SPECIALIST to avoid fall. Quick fatigue with STs transfers. [facility] Work Phone: History of Present illness Narrative Pt. with SBA with walking to gym area, knee trying to buckle per pt. Verbal cues with standing exercises with frequent breaks needed. Fingertips/one hand support needed to maintain balance. Quick fatigue noted with SLR's and bridges. No increased sx.'s noted following session.Patient was able to complete today's treatment with some difficulty. [facility] Work Phone: History of Present illness Narrative Patient identified by name and date of . CGA/SBA for song Patient demonstrated moderate sway and LOB several times with balance activities with 50% ability to self correct. She was able to resume exercises this treatment w/o increased Sx for knee weakness noted. Patient required cues throughout treatment to slow down and focus on eccentric control and muscle engagement. [facility] Work Phone: History of Present illness Narrative Pt has attended 7 visits of skilled PT for MS consisting of evaluation, ther ex, neuro re-education, and gait training. Patient continues to be at a high fall risk as evidenced by a TUG time of 23 with FWW. Reminded pt to call MD and request script for FWW as gait is unsafe with SPC. Pt would benefit from cont skilled PT to further increase LE strength, improve bal for decreased fall risk.Patient was able to complete today's treatment with some difficulty. [facility] Work [facility]: History of Present illness Narrative Pt challenged with mod tandem balance activities, single leg ther ex and single leg balance exercises. Progressed reps of standing ther ex this session. Fatigued, but no instances of R or L knee buckling throughout session and no seated rest breaks needed. Cont progressing LE strengthening/bal activities as dez for decreased fall risk, more normalized gait.Reminded pt to ask neuro at next radha for FWW script as pt needs FWW to amb to/from lobby and gym. [facility] Work Phone: History of Present illness Narrative Patient's treatment was completed by two different therapist due to patient came early for her appoinment and in order for her not to have to sit and wait for her scheduled time she was started early by CHILD SPECIALIST.Patient identified by name & . Patient wore a mask during treatment d/t Covid-19 precautions. Treatment consisted of ther ex's for LE strengthening. Has difficulty keeping knee extended with R hip extension in standing. Has decreased knee flexion on L with standing HS curls. Tolerated strengthening ex's well with minimal fatigue. -MADuring NMRE, pt tends to lose balance to the R which requires min A to correct during multiple activities. Pt varies UE support during neuro re-ed activities. CGA and gait belt required for all neuro re-ed activities. [facility] Work Phone: History of Present illness Narrative Pt has attended 10 visits of skilled PT for abnormal gait consisting of evaluation, ther ex, gait training, and neuro re-ed. Subjectively, since initiation of skilled PT, pt reports that she continues to have good days and bad days. Objectively, pt is still at continued risk for falls as evidenced by TUG score; however, no significant improvement in TUG score with PT intervention. Pt has follow-up scheduled with MD and has knowledge/skills to cont progressing LE strength independently via a progressive HEP, which has been provided. Therefore, skilled PT will be discharged. [facility] Work Phone: History of Present illness Narrative Here to get re-established. She has a h/o MS (Dr Abarca). She has a cane and would like to get a wheeled walker. [facility] Work Phone: History of Present illness Narrative Here to get re-established. She has a h/o depression, MS (Dr Abarca). She has a cane and would like to get a wheeled walker. It has been a while since she had fasting labs done and she is interested in getting those done. [facility] Work Phone: History of Present illness Narrative Here for f/u depression, MS (Dr Abarca). She states that overall she is doing pretty well. She states that she forgot to get her labs. She would like to get a Rx for a manual wheelchair - she states that she has a hover round at home but it is too bulky to use outside of the house. She currently uses a wheeled walker, but states that sometimes her knees don't work so well. [facility] Work Phone: History of Present illness Narrative The patient demonstrated speech that was moderately impaired, marked by constant word and phrase repetitions and slurred breathy speech. She would benefit from participation in services in order improve lingual strength, articulatory precision, word finding, and breath support.Treatment recommendations: treatment indicated (see goals below) [facility] Work Phone: History of Present illness Narrative Strategies for external pacing were provided.Anterior lingual strength and ROM exercises were conducted. Posterior retraction exercises were conducted again.Alveolar consonants in the initial, medial, and final position of the single words were targeted with increased emphasis and effort with production. Preston was able to complete task with 60% accuracy given max prompting. [facility] Work Phone: History of Present illness Narrative Strategies for external pacing were provided.Anterior lingual strength and ROM exercises were conducted. Posterior retraction exercises were conducted again. Throughout exercises Preston was often stopping during reps without full completing items and taking large pauses. When asked about difficulty or fatigue, Preston denied both.Velar consonants in the initial, medial, and final position of the single words were targeted with increased emphasis and effort with production. Preston was able to complete task with 75% accuracy given max prompting. [facility] Work Phone: Reason for visit Narrative Initial Evalu ation . MS, unspecified abnormalities of gait and mobility.Referred by: Caterina Bingham NP [facility] Work Phone: Instructions Name Dates Details Instructions not documented Assessments Diagnosis Chronic ITP (idiopathic thro mbocytopenia) (HCC) - Primary Iron deficiency anemia, unsp ecified iron deficiency anemia type Summary Purpose Family History No Family History Records FoundUnknown Family Member Name Dates Details Family history of diabetes m ellitus: Grandparent(V18.0, Z83.3) Status:Active Family history of hypertensi on: Grandparent(V17.49, Z82.49) Status:Active Unknown Family Member Name Dates Details Family history of diabetes m ellitus: Grandparent(V18.0, Z83.3) Status:Active Family history of hypertensi on: Grandparent(V17.49, Z82.49) Status:Active Unknown Family Member Name Dates Details Family history of diabetes m ellitus: Grandparent(V18.0, Z83.3) Status:Active Family history of hypertensi on: Grandparent(V17.49, Z82.49) Status:Active Unknown Family Member Name Dates Details Family history of diabetes m ellitus: Grandparent(V18.0, Z83.3) Status:Active Family history of hypertensi on: Grandparent(V17.49, Z82.49) Status:Active Unknown Family Member Name Dates Details Family history of diabetes m ellitus: Grandparent(V18.0, Z83.3) Status:Active Family history of hypertensi on: Grandparent(V17.49, Z82.49) Status:Active Unknown Family Member Name Dates Details Family history of diabetes m ellitus: Grandparent(V18.0, Z83.3) Status:Active Family history of hypertensi on: Grandparent(V17.49, Z82.49) Status:Active Unknown Family Member Name Dates Details Family history of diabetes m ellitus: Grandparent(V18.0, Z83.3) Status:Active Family history of hypertensi on: Grandparent(V17.49, Z82.49) Status:Active Unknown Family Member Name Dates Details Family history of diabetes m ellitus: Grandparent(V18.0, Z83.3) Status:Active Family history of hypertensi on: Grandparent(V17.49, Z82.49) Status:Active Unknown Family Member Name Dates Details Family history of diabetes m ellitus: Grandparent(V18.0, Z83.3) Status:Active Family history of hypertensi on: Grandparent(V17.49, Z82.49) Status:Active Unknown Family Member Name Dates Details Family history of hypertensi on: Grandparent(V17.49, Z82.49) Status:Active Family history of diabetes m ellitus: Grandparent(V18.0, Z83.3) Status:Active Unknown Family Member Name Dates Details Family history of hypertensi on: Grandparent(V17.49, Z82.49) Status:Active Family history of diabetes m ellitus: Grandparent(V18.0, Z83.3) Status:Active Unknown Family Member Name Dates Details Family history of diabetes m ellitus: Grandparent(V18.0, Z83.3) Status:Active Family history of hypertensi on: Grandparent(V17.49, Z82.49) Status:Active Unknown Family Member Name Dates Details Family history of diabetes m ellitus: Grandparent(V18.0, Z83.3) Status:Active Family history of hypertensi on: Grandparent(V17.49, Z82.49) Status:Active Unknown Family Member Name Dates Details Family history of diabetes m ellitus: Grandparent(V18.0, Z83.3) Status:Active Family history of hypertensi on: Grandparent(V17.49, Z82.49) Status:Active Unknown Family Member Name Dates Details Family history of diabetes m ellitus: Grandparent(V18.0, Z83.3) Status:Active Family history of hypertensi on: Grandparent(V17.49, Z82.49) Status:Active Unknown Family Member Name Dates Details Family history of diabetes m ellitus: Grandparent(V18.0, Z83.3) Status:Active Family history of hypertensi on: Grandparent(V17.49, Z82.49) Status:Active Unknown Family Member Name Dates Details Family history of diabetes m ellitus: Grandparent(V18.0, Z83.3) Status:Active Family history of hypertensi on: Grandparent(V17.49, Z82.49) Status:Active Unknown Family Member Name Dates Details Family history of diabetes m ellitus: Grandparent(V18.0, Z83.3) Status:Active Family history of hypertensi on: Grandparent(V17.49, Z82.49) Status:Active Unknown Family Member Name Dates Details Family history of diabetes m ellitus: Grandparent(V18.0, Z83.3) Status:Active Family history of hypertensi on: Grandparent(V17.49, Z82.49) Status:Active Unknown Family Member Name Dates Details Family history of diabetes m ellitus: Grandparent(V18.0, Z83.3) Status:Active Family history of hypertensi on: Grandparent(V17.49, Z82.49) Status:Active Advance Directives No Advanced Directives Records FoundNo Advanced Directives Records FoundNo Advanced Directives Records FoundNo Advanced Directives Records FoundNo Advanced Directives Records FoundNo Advanced Directives Records FoundNo Advanced Directives Records FoundNo Advanced Directives Records FoundNo Advanced Directives Records FoundNo Advanced Directives Records Found Chief Complaint NPV, requesting a walker with wheels, splinter in right pointer fingerNPV, requesting a walker with wheels6 mo f/u, rx for hoverround or manual w/c Additional Source Comments INFORMATION SOURCE (unrecogn ized section and content) DATE CREATED AUTHOR AUTHOR'S ORGANIZ ATION 01/11/2018 [facility] DATE CREATED AUTHOR AUTHOR'S ORGANIZ ATION 02/15/2018 [facility] DATE CREATED AUTHOR AUTHOR'S ORGANIZ ATION 03/22/2019 [facility] DATE CREATED AUTHOR AUTHOR'S ORGANIZ ATION 03/27/2019 [facility] DATE CREATED AUTHOR AUTHOR'S ORGANIZ ATION 04/21/2022 [facility] DATE CREATED AUTHOR AUTHOR'S ORGANIZ ATION 07/10/2022 [employer] DATE CREATED AUTHOR AUTHOR'S ORGANIZ ATION 07/20/2022 [facility] DATE CREATED AUTHOR AUTHOR'S ORGANIZ ATION 10/10/2022 [facility] DATE CREATED AUTHOR AUTHOR'S EARLINE CUEVA 01/22/2023 [facility] <item> Privacy Markings (unrecogniz ed section and content) Section Author: Alondra Sheridan PROHIBITION ON REDISCLOSURE OF CONFIDENTIAL INFORMATION This notice accompanies a disclosure of information concerning a client made to you with the consent of such client. FOR RECORDS PERTAINING TO PATIENTS WHO ARE OR HAVE BEEN ENROLLED IN A CHEMICAL DEPENDENCY/SUBSTANCEABUSE PROGRAM, SOME INFORMATION MAY BE OMITTED. This clinical summary was aggregated from multiple sources. Caution should be exercised in using it in the provision of clinical care. This summary normalizes information from multiple sources, and as a consequence, information in this document may materially change the coding, format and clinical context of patient data. In addition, data may be omitted in some cases. CLINICAL DECISIONS SHOULD BE BASED ON THE PRIMARY CLINICAL RECORDS. [employer] provides no warranty or guarantee of the accuracy or completeness of information in this document.
== END | disposition home or self-care (01) ==
LOC: MTLAB 14:37
PROVIDERS: PCP Family Medicine; Referring Provider Psychiatry & Neurology Neurology; Visit Provider Psychiatry & Neurology Neurology
DX: R53.83 Other fatigue (principal); G35 Multiple sclerosis
CPT/HCPCS: 36415; 80053; 85025

== ENCOUNTER → 2024-10-25 | Outpatient (CLI) | payer MEDICARE, MEDICAID, SELFPAY ==
[2024-10-25 17:50] LABS: Absolute Lymphocyte Count 1.64 X10^3/uL (0.83-4.51); Absolute Neutrophil Count 4.2 X10^3/uL (2.0-7.7); Basophil# 0.06 X10^3/uL; Basophil% 0.9 % (0-1); Eosinophil# 0.17 X10^3/uL; Eosinophils% 2.5 % (0-5); Hematocrit 36.9 % (37-47); Hemoglobin 11.8 g/dL (12.0-15.0); Lymphocyte # 1.64 X10^3/ul (0.83-4.51); Lymphocyte % 24.1 % (19-41); Mean Corpuscular Hgb 28.2 pg (27.0-32.0); Mean Corpuscular Volume 88.1 fL (81-99); Monocyte# 0.68 X10^3/uL; NRBC Flagged by Analyzer 0 % (0-5); Neutrophil # 4.19 X10^3/uL (2.7-7.7); Neutrophil % 61.5 % (47-70); Platelet Count 116 K/mm3 (150-450); RBC Distribution Width CV 14.4 % (11.6-14.6); RBC Distribution Width SD 45.6 fl (35.1-43.9); Red Blood Count 4.19 M/mm3 (4.2-5.4); White Blood Count 6.8 K/mm3 (4.4-11.0)
[2024-10-25 18:05] LABS: ALB/GLOB Ratio 1.6 RATIO (0.9-2.4); AST(SGOT) 27 U/L (<=31); Alanine Aminotransfer ALT/SGPT 25 U/L (<=34); Albumin, Serum 4.2 g/dL (3.5-5.0); Alkaline Phosphatase 77 U/L (35-104); Anion Gap 12 (5-15); BUN 21 mg/dL (4-19); BUN/Creat Ratio 20.6 RATIO (10-20); Calcium,Total 9.6 mg/dL (7.6-11.0); Carbon Dioxide 24.7 mmol/L (21.0-32.0); Chloride 105 mmol/L (98-108); Creatinine, Serum 1.01 mg/dL (0.70-1.20); EST Glomerular Filtration Rate 70 (>60); Globulin 2.6 g/dL (2.2-4.2); Glucose 88 mg/dL (70-99); Potassium 3.6 mmol/L (3.3-5.1); Protein, Total 6.7 g/dL (5.9-8.4); Sodium Level 141 mmol/L (133-145)
== END | disposition home or self-care (01) ==
LOC: MTLAB 13:50
PROVIDERS: PCP Family Medicine; Referring Provider Psychiatry & Neurology Neurology; Visit Provider Psychiatry & Neurology Neurology
DX: G35 Multiple sclerosis (principal)
CPT/HCPCS: 36415; 80053; 82652; 83735; 85025

== ENCOUNTER → 2024-12-14 | Outpatient (CLI) | payer MEDICARE, MEDICAID, SELFPAY ==
--- NOTE | 2024-12-14 11:57 | MRI_ITS ---
PROCEDURE: SPINE THORACIC W/WO CONTRAST 12/14/2024 REASON FOR EXAM: MONITORING OF MULTIPLE SCLEROSIS TECHNIQUE: Thoracic spine MRI without and with intravenous gadolinium-based contrast. Multiplanar and multisequence images were obtained. CONTRAST: There is no paperwork included to demonstrate the amount of contrast utilized COMPARISON: No comparison studies have been placed online. FINDINGS: No compression deformity. No subluxation. No vertebral body edema. On axial images, there is a small midthoracic syrinx. Multilevel small protrusions are also seen in the midthoracic region. There is patchy demyelination at the level of the conus. Demyelination is seen at T9 and also at T3 and T2. On postcontrast images, there is no enhancement. MRI/Spine Thoracic W/WO Contrast IMPRESSION: Midthoracic small protrusions without cord compression. Patchy demyelination i n the thoracic spinal cord without enhancement enumerated above. Small central thoracic syrinx versus hydromyelia. Reading Location: [facility]
== END | disposition home or self-care (01) ==
LOC: OPMRI 11:36
PROVIDERS: PCP Family Medicine; Referring Provider Psychiatry & Neurology Neurology; Visit Provider Psychiatry & Neurology Neurology
DX: G35 Multiple sclerosis (principal)
CPT/HCPCS: 72157; A9575

== ENCOUNTER → 2025-02-12 | Outpatient (CLI) | payer MEDICARE, MEDICAID, SELFPAY ==
[2025-02-12 18:21] LABS: Hematocrit 39.1 % (37-47); Hemoglobin 12.3 g/dL (12.0-15.0); Immature Granulocytes Count 0.050 X10^3/uL (0.0-0.0); Mean Corp Hgb Conc 31.5 g/dL (32-36); Mean Corpuscular Volume 88.3 fL (81-99); NRBC Flagged by Analyzer 0 % (0-5); POSITIVE COUNT YES; RBC Distribution Width CV 14.6 % (11.6-14.6); RBC Distribution Width SD 47.0 fl (35.1-43.9); Red Blood Count 4.43 M/mm3 (4.2-5.4); White Blood Count 6.0 K/mm3 (4.4-11.0)
[2025-02-12 18:55] LABS: Differential Indicated SCAN CRITERIA MET
[2025-02-12 22:04] LABS: AST(SGOT) 16 U/L (<=31); Alanine Aminotransfer ALT/SGPT 12 U/L (<=34); Albumin, Serum 4.3 g/dL (3.5-5.0); Alkaline Phosphatase 73 U/L (35-104); Anion Gap 13 (5-15); BUN 21 mg/dL (4-19); BUN/Creat Ratio 17.5 RATIO (10-20); Calcium,Total 9.5 mg/dL (7.6-11.0); Carbon Dioxide 22.5 mmol/L (21.0-32.0); Chloride 106 mmol/L (98-108); Globulin 2.5 g/dL (2.2-4.2); Glucose 111 mg/dL (70-99); Iron 67 ug/dL (50-170); Magnesium 2.1 mg/dL (1.5-2.2); Potassium 3.9 mmol/L (3.3-5.1); Vitamin B12 497 pg/mL (180-914)
[2025-02-12 22:24] LABS: Platelet Count 91 K/mm3 (150-450)
[2025-02-12 22:25] LABS: Differential Comment SCANNED
[2025-02-14 15:08] LABS: Folate, Hemolysate Test 581.0 ng/mL (Not Estab.); Folate, RBC (Hct) Test 41.3 % (34.0-46.6); Folates, RBC Test 1407 ng/mL (>498)
== END | disposition home or self-care (01) ==
LOC: MTLAB 15:13
PROVIDERS: PCP Family Medicine; Referring Provider Psychiatry & Neurology Neurology; Visit Provider Psychiatry & Neurology Neurology
DX: G35 Multiple sclerosis (principal); Z86.2 Personal history of diseases of the blood and blood-forming organs and certain disorders involving the immune mechanism
CPT/HCPCS: 36415; 80053; 82607; 82747; 83540; 83735; 85014; 85025

== ENCOUNTER → 2025-03-11 | Outpatient (CLI) | payer MEDICARE, MEDICAID, SELFPAY ==
--- NOTE | 2025-03-11 10:10 | MRI_ITS ---
PROCEDURE: BRAIN W/WO CONTRAST 03/11/2025 REASON FOR EXAM: MONITOR TREATMENT FOR MULTIPLE SCLEROSIS TECHNIQUE: BRAIN W/WO CONTRAST Multiplanar and multisequence images were obtained. CONTRAST: Clariscan VOLUME: 19 mL COMPARISON: None. FINDINGS: There is severe cerebral atrophy with concomitant ventriculomegaly. There is patchy periventricular white matter signal abnormality. This is a nonspecific but is consistent with demyelinating disease. There is no abnormal intracranial contrast enhancement. There is a normal sulcal pattern and gyral configuration. There is no evidence of acute intracranial hemorrhage or infarction. The arredondo-white differentiation is well preserved. There is no evidence of restricted diffusion. The basilar cisterns are normal. There are normal flow voids demonstrated in the recognized intracranial vessels. The cerebellum and brainstem are unremarkable. The cerebellar pontine angles are normal. The craniovertebral junction is normal. The sella and suprasellar regions are normal. The orbits and retro-orbital regions are unremarkable. The nasal septum is midline. There is a mucous retention cyst in the left maxillary sinus. The mastoid air cells are clear. There is normal bone marrow signal in the skull base and calvarium. MRI/Brain W/WO Contrast IMPRESSION: 1. Severe cerebral atrophy. 2. Periventricular white matter signal abnormality consistent with demyelinati ng disease. There is no evidence involvement of the brainstem, visualized cervical spinal cord or optic nerves. Reading Location: [id number]
--- NOTE | 2025-03-11 10:10 | MRI_ITS ---
PROCEDURE: SPINE THORACIC W/WO CONTRAST, 03/11/2025 REASON FOR EXAM: MONITOR TREATMENT FOR MULTIPLE SCLEROSIS TECHNIQUE: Multisequence multiplanar MR of the thoracic spine was performed with and without IV contrast. IV Contrast: 19 mL Clariscan foci COMPARISON: 12/14/2024 FINDINGS: Variable overall mild motion limitation. Vertebral body heights are preserved. No suspicious marrow signal abnormality. Lower thoracic and upper lumbar dextroscoliosis and mild cervicothoracic levoscoliosis.. Thoracic cord normal in morphology. No definite change in multifocal T2 cord signal abnormalities better seen previously probably on a technical basis, within the central and RIGHT cord at T2-T3, on the RIGHT at T4-T5, and possibly on the RIGHT at T9-T10. Previously described demyelination at the level of the conus medullaris not definitely seen. There remains no associated abnormal enhancement. Similar borderline mild prominence of the central canal along the midthoracic cord versus trace syrinx/hydromyelia, measuring up to 2 mm at the level of T7. Multifocal variable disc bulging/protrusion without high-grade spinal canal stenosis. New partially imaged [id number] RIGHT hydronephrosis. MRI/Spine Thoracic W/WO Contrast IMPRESSION: 1. New partially imaged [id number] RIGHT hydronephrosis without visible obstructing lesion on nondedicated evaluation. Recommend clinical follow-up including CT urogram with and without contrast. 2. No definite change in multifocal thoracic cord signal abnormalities allowing for technical factors, presumed sequela of reported MS. No definite abnormal enhancement to suggest active demyelinating d isease. 3. Additional description as above. Reading Location: [id number]
--- NOTE | 2025-03-11 10:10 | MRI_ITS ---
PROCEDURE: SPINE CERVICAL W/WO CONTRAST 03/11/2025 REASON FOR EXAM: MONITOR TREATMENT FOR MULTIPLE SCLEROSIS TECHNIQUE: SPINE CERVICAL W/WO CONTRAST Multiplanar and multisequence images were obtained with intravenous gadolinium-based contrast administration. CONTRAST: Ashley scan VOLUME: 19 mL COMPARISON: No prior cervical studies at this institution FINDINGS: On T2 weighted images of the cervical spine there is no compression deformity, subluxation or Chiari deformity. Postcontrast images demonstrate no evidence of enhancement. C2-3 and C3-4 are unremarkable. C4-5 is within normal limits. At C5-6 there is a left paracentral and foraminal disc protrusion with left C6 nerve root impingement Moderate spinal stenosis at C6-7 with a prominent central extrusion but no myelomalacia. Neural foramina are patent. C7-T1 is unremarkable. There is no cervical spinal cord demyelination MRI/Spine Cervical W/WO Contrast IMPRESSION: Protrusions at both C5-6 and C6-7. Left C6 nerve root compression. Moderate s kristen stenosis at C6-7. Negative for demyelination. Negative for spinal cord enhancement Reading Location[facility]
== END | disposition home or self-care (01) ==
LOC: MRI 10:04
PROVIDERS: PCP Family Medicine; Referring Provider Psychiatry & Neurology Neurology; Visit Provider Psychiatry & Neurology Neurology
DX: G35 Multiple sclerosis (principal)
CPT/HCPCS: 70553; 72156; 72157; A9575; A4216

== ENCOUNTER → 2025-06-04 | Outpatient (CLI) | payer MEDICARE, MEDICAID, SELFPAY ==
[2025-06-04 17:37] LABS: Hematocrit 37.2 % (37-47); Hemoglobin 11.7 g/dL (12.0-15.0); Immature Granulocytes Count 0.080 X10^3/uL (0.0-0.0); Mean Corp Hgb Conc 31.5 g/dL (32-36); Mean Corpuscular Volume 87.5 fL (81-99); Mean Platelet Vol. 14.9 fl (6.2-12.0); NRBC Flagged by Analyzer 0 % (0-5); Platelet Count 109 K/mm3 (150-450); RBC Distribution Width CV 13.4 % (11.6-14.6); RBC Distribution Width SD 43.1 fl (35.1-43.9); Red Blood Count 4.25 M/mm3 (4.2-5.4); White Blood Count 7.8 K/mm3 (4.4-11.0)
[2025-06-04 18:42] LABS: AST(SGOT) 15 U/L (<=31); Alanine Aminotransfer ALT/SGPT 14 U/L (<=34); Albumin, Serum 4.1 g/dL (3.5-5.0); Alkaline Phosphatase 75 U/L (35-104); Anion Gap 12 (5-15); BUN 23 mg/dL (4-19); BUN/Creat Ratio 19.5 RATIO (10-20); Calcium,Total 9.6 mg/dL (7.6-11.0); Carbon Dioxide 24.3 mmol/L (21.0-32.0); Chloride 107 mmol/L (98-108); Globulin 2.8 g/dL (2.2-4.2); Glucose 87 mg/dL (70-99); Magnesium 2.3 mg/dL (1.5-2.2); Potassium 3.7 mmol/L (3.3-5.1)
== END | disposition home or self-care (01) ==
LOC: MTLAB 14:48
PROVIDERS: PCP Family Medicine; Referring Provider Psychiatry & Neurology Neurology; Visit Provider Psychiatry & Neurology Neurology
DX: G35.D Multiple sclerosis, unspecified (principal); R53.83 Other fatigue
CPT/HCPCS: 80053; 83735; 84443; 85025